=== PATIENT | male | born 1955 | race Two or more races ===

== ENCOUNTER 2019-07-12 08:12 | Day surgery (SDC) | payer OTHER | END 2019-07-12 11:45 | disposition home or self-care (01) | LOC: AMB-ENDOS 08:12 | DX: D12.0 Benign neoplasm of cecum (principal); D12.3 Benign neoplasm of transverse colon; K57.30 Diverticulosis of large intestine without perforation or abscess without bleeding ==

== ENCOUNTER 2019-07-31 11:30 | Inpatient (IN) | payer OTHER ==
[~2019-07-31] VITALS: Ht 167.6 cm; Wt 79.4 kg
[2019-09-18] MEDS ORDERED: TIROSINT100 MCG PO (14:00)
[2019-09-18] MEDS ORDERED: COZAAR100 MG PO (14:00)
[2019-09-18] MEDS ORDERED: AZOR 5-20 MG T1 EACH PO (14:01)
[2019-09-18] MEDS ORDERED: ASPIR 8181 MG PO (14:01)
[2019-09-18] MEDS ORDERED: ZOCOR20 MG PO (14:02)
[2019-09-18] MEDS ORDERED: CLONAZEPAM1 MG PO (14:03)
[2019-09-18] MEDS ORDERED: FLUOXETINE PO (14:03)
[2019-09-26] MEDS ORDERED: NORVASC5 MG PO (08:36)
[2019-09-26] MEDS ORDERED: PROZAC10 M1 PO (08:37)
[2019-10-01] MEDS ORDERED: AZITHROMYCIN500 MG PO (14:57)
[2019-10-01] MEDS ORDERED: INTESTINEX680 M1 PO (14:57)
== END 2019-10-01 18:38 | disposition home or self-care (01) | DRG 329 ==
LOC: SURG 09-24 07:00 → O/R 09-24 10:41 → SURH 09-24 10:41 → SURG 09-24 11:30 → SURH 09-24 20:03
PROVIDERS: ADMIT Surgery
PROC: 07BB4ZX Excision of Mesenteric Lymphatic, Percutaneous Endoscopic Approach, Diagnostic (ICD-10-PCS; 2019-09-24)
PROC: 0DBQ0ZZ Excision of Anus, Open Approach (ICD-10-PCS; 2019-09-24)
PROC: 0DTF4ZZ Resection of Right Large Intestine, Percutaneous Endoscopic Approach (ICD-10-PCS; principal; 2019-09-24 07:00)
PROC: 4A033R1 Measurement of Arterial Saturation, Peripheral, Percutaneous Approach (ICD-10-PCS; 2019-09-27)
PROC: BB24ZZZ Computerized Tomography (CT Scan) of Bilateral Lungs (ICD-10-PCS; 2019-09-27)
PROC: BB24YZZ Computerized Tomography (CT Scan) of Bilateral Lungs using Other Contrast (ICD-10-PCS; 2019-09-28)
PROC: BW21YZZ Computerized Tomography (CT Scan) of Abdomen and Pelvis using Other Contrast (ICD-10-PCS; 2019-09-28)
PROC: 3E0F7GC Introduction of Other Therapeutic Substance into Respiratory Tract, Via Natural or Artificial Opening (ICD-10-PCS; 2019-09-28)
PROC: 8E0ZXY6 Isolation (ICD-10-PCS; 2019-09-28)
DX: D12.2 Benign neoplasm of ascending colon (principal); J15.7 Pneumonia due to Mycoplasma pneumoniae; B37.1 Pulmonary candidiasis; K91.31 Postprocedural partial intestinal obstruction; J95.89 Other postprocedural complications and disorders of respiratory system, not elsewhere classified; J98.11 Atelectasis; J90 Pleural effusion, not elsewhere classified; D13.39 Benign neoplasm of other parts of small intestine; R59.0 Localized enlarged lymph nodes; K63.89 Other specified diseases of intestine; K60.0 Acute anal fissure; K64.8 Other hemorrhoids; K57.30 Diverticulosis of large intestine without perforation or abscess without bleeding; I11.9 Hypertensive heart disease without heart failure; E03.8 Other specified hypothyroidism; F41.1 Generalized anxiety disorder; K60.1 Chronic anal fissure